=== PATIENT | female | born 1990 | race Caucasian/White ===

== ENCOUNTER 2016-06-15 18:37 | Emergency (ER) | payer OTHER ==
[~2016-06-15] VITALS: Ht 170.2 cm; Wt 127.0 kg
[~2016-06-15 18:37] MED LIST: ABILIFY 15MG15 MG PO; ACULAR5 ML OPH; ALBUTEROL0.09 MG/A1 INH; AMOXIL500 MG PO; AZITHROMYCIN250 M1 PO; BACTRIM DS 8001 TAB PO; BACTROBAN OINT.15 GM TOP; CLONIDINE HCL0.1 MG PO; DOXYCYCLINE HY100 M4 PO; ESCITALOPRAM10 MG PO; FIORICET 50-301 EACH PO; FLUOXETINE HCL20 M2 PO; GABAPENTIN300 M2 PO; IBUPROFEN800 MG PO; MEDROL DOSEPAK1 PAC PO; METHADONE HC10 MG/M1 PO; METHADONE10 MG/5 M2 PO; MUCINEX D ER T1 EACH PO; NARCAN4 MG NAS; NITROFURANTOIN100 M5 PO; PERCOCET 325 MG1 TA2 PO; PERCOCET 5-3251 EACH PO; SUBOXONE 8 MG-21 FIL SL; TESSALON PERLE100 MG PO; TOPIRAMATE25 M2 PO; VALTREX1 GM PO; VALTREX1000 MG PO; VICODIN 5-3001 EACH PO; VICODIN5-300 PO; VIGAMOX3 ML OPH; VIIBRYD20 MG PO; ZOFRAN ODT4 M1 SL
[2016-06-15] MEDS ORDERED: IBUPROFEN200 M3 PO (19:33)
--- NOTE | 2016-06-15 19:39 | ED GENERAL ADULT ---
History of Present Illness General Chief Complaint: Headache Stated Complaint: HEADACHE,PRESSURE BEHIND EYES Source: patient, family, old records Exam Limitations: no limitations Vital Signs & Intake/Output Vital Signs & Intake/Output Vital Signs Date Time Temp Pulse Resp B/P Pulse O2 O2 Flow FiO2 Ox Delivery Rate 06/15 2208 96.9 91 20 128/69 98 Room Air ED Intake and Output 06/16 0000 06/15 1200 Intake Total Output Total Balance Patient 280 lb Weight Allergies Coded Allergies: cefuroxime (Intermediate, RASH 06/15/16) lurasidone (VOMITING 06/15/16) Reconcile Medications Acetazolamide (Diamox Sequels) 500 MG CAPSULE.ER 1 CAP PO DAILY PSEUDOTUMOR CEREBRI Fluoxetine HCl 20 MG CAPSULE 1 CAP PO DAILY MENTAL HEALTH (Reported) Gabapentin 300 MG CAPSULE 1 CAP PO TID ANXIETY (Reported) Gabapentin (Neurontin) 300 MG CAPSULE 1 CAP PO TID Ibuprofen 200 MG CAPSULE 2 CAP PO PRN PAIN (Reported) Methadone HCl 10 MG/5 ML SOLUTION 80 MG PO DAILY MENTAL HEALTH (Reported) Naloxone HCl (Narcan) 4 MG SPRAY 4 MG REJI AD PRN OPIOID OVERUSE (Reported) Topiramate 25 MG TABLET 3 TAB PO BID ANXIETY (Reported) Triage Note: TRIAG: PT TO ER C/C HEADACHE AND PRESSURE BEHIND THE EYES. PT HAS NOTE FROM [facility] WHERE SHE GOES FOR HER METHADONE, NOTE IS DATED FROM 06/03/2016 IN WHICH THEY REFER HER TO THE ER FOR EVAL OF "PROGRESSIVELY WORSENING GERNERALIZED HEADACHE, R SIDED VISION CHANGES, UNSTEADINESS. HAS NOT HAD NEUROLOGIC WORKUP OR CARE. HAD NEW ONSET SEIZURE RECURRENT UNCLEAR ETIOLOGY." PT DID NOT SEEK ER INTERVENTION BETWEEN 06/03 AND TODAY. Triage Nurses Notes Reviewed? yes : No Patient currently breastfeeds: No HPI: Patient is a 25-year-old female presents complaining of headaches, blurred vision, seizure episodes. Patient reports she has a history of pseudotumor cerebri, was previously on Acetazolamide but stopped taking this medication due to it not being effective. Pain is mainly behind the right eye is currently moderate to severe. Mother also reports episodes were patient just "drops" and believes that she is having seizures. Episodes are more frequent when patient is not on her Neurontin. Patient normally takes Neurontin 300 mg 3 times a day but ran out several days ago. Mother reports patient feels confused after these episodes. Patient does not necessarily shake during these episodes, but mother reports that she has been watching her daughter shake in her sleep at times. Associated anxiety. Denies extremity numbness, extremity weakness, vomiting (DEANNA RODRIGUEZ) Past History Travel History Traveled to [place] past 21 day No Medical History Any Pertinent Medical History? see below for history Neurological: seizure, PSEUDOTUMOR CEREBRI TBI EENT: NONE Cardiovascular: NONE Respiratory: NONE Gastrointestinal: NONE Hepatic: NONE Renal: NONE Musculoskeletal: NONE Psychiatric: anxiety, depression Endocrine: NONE Blood Disorders: NONE Cancer(s): NONE YARD LABORER/Reproductive: NONE Tetanus Vaccine: 08/19/15 Surgical History Surgical History: cholecystectomy Psychosocial History Who do you live with Mother What is your primary language Croatian Tobacco Use: Current Daily Use Daily Tobacco Use Amount/Type: => 5 Cigarettes daily ETOH Use: occasional use Illicit Drug Use: PCP (DEANNA RODRIGUEZ) Family History Hx Contributory? No (ROLANDA FERNANDEZ,KIMBERLEY Escoto) Review of Systems Review of Systems Constitutional: Denies: chills, fever. EENTM: Reports: blurred vision, eye pain. Respiratory: Denies: cough, short of breath. Cardiovascular: Denies: chest pain. GI: Denies: abdominal pain, nausea, vomiting. Genitourinary: Reports: no symptoms. Musculoskeletal: Reports: no symptoms. Skin: Reports: no symptoms. Neurological/Psychological: Reports: see HPI, headache. Hematologic/Endocrine: Reports: no symptoms. Immunologic/Allergic: Reports: no symptoms. (DEANNA RODRIGUEZ) Physical Exam Physical Exam General Appearance: alert, awake, obese Head: atraumatic, normal appearance Eyes: Bilateral: normal appearance, PERRL, EOMI. Ears, Nose, Throat: normal pharynx, normal ENT inspection, hearing grossly normal Neck: normal inspection, supple, full range of motion Respiratory: normal breath sounds, chest non-tender, no respiratory distress, lungs clear Cardiovascular: regular rate/rhythm Gastrointestinal: soft, non-tender Back: normal inspection, normal range of motion Extremities: normal inspection, normal capillary refill, normal range of motion, no edema Neurologic/Psych: no motor/sensory deficits, awake, alert, oriented x 3, normal gait, normal mood/affect, java software developer II-XII nml as tested Skin: intact, normal color, warm/dry Lymphatic: no anterior cervical yanci (DEANNA RODRIGUEZ) Core Measures ACS in differential dx? No CVA/TIA Diagnosis: No Severe Sepsis Present: No Septic Shock Present: No (ROLANDA FERNANDEZ,KIMBERLEY Escoto) Progress Differential Diagnoses I considered the following diagnoses in my evaluation of the patient: pseudotumor cerebri, seizures, anxiety, migraines, substance abuse Diagnostic Imaging: Discussed w/RAD: CT Scan. Initial ED EKG: none Hand-Off Endorsed To: ROLANDA FERNANDEZ,KIMBERLEY Escoto Endorsed Time: 2110 Pending: labs (DEANNA RODRIGUEZ) Plan of Care: Orders Procedure Date/time Status CEREBROSPINAL FLUID CULTURE 06/15 2035 Active CSF TOTAL PROTEIN 06/15 2035 Complete CEREBROSPINAL FL CELL CT 06/15 2035 Complete CSF GLUCOSE 06/15 2035 Complete URINE 06/15 1932 Complete URINE DRUG SCREEN FOR ER ONLY 06/15 1932 Complete COMPREHENSIVE METABOLIC PANEL 06/15 1932 Complete CBC WITHOUT DIFFERENTIAL 06/15 1932 Complete Laboratory Tests 06/15/162034: CSF Glucose 62, CSF Total Protein 41 06/15/162034: CSF WBC 1, CSF RBC 11 H, CSF Comment 06/15/161952: Anion Gap 9, Estimated GFR > 60, BUN/Creatinine Ratio 15.0, Glucose 102 H, Calcium 9.0, Total Bilirubin 0.4, AST 20, ALT 34, Alkaline Phosphatase 60, Total Protein 7.4, Albumin 4.1, Globulin 3.3, Albumin/Globulin Ratio 1.2, CBC w Diff NO MAN DIFF REQ, RBC 4.95, MCV 81.2, MCH 27.0, RDW 15.5 H, MPV 7.8, Gran % 52.7 , Lymphocytes % 40.0, Monocytes % 5.5, Eosinophils % 1.5, Basophils % 0.3, Absolute Granulocytes 5.8, Absolute Lymphocytes 4.4 H, Absolute Monocytes 0.6, Absolute Eosinophils 0.2, Absolute Basophils 0, PUBS MCHC 33.2, Urine Opiates Screen < 100.00, Methadone Screen > 735 H, Barbiturate Screen < 60, Ur Phencyclidine Scrn > 72.00 H, Amphetamines Screen < 100, U Benzodiazepines Scrn < 85, Urine Cocaine Screen < 50, Urine Cannabis Screen < 5.00, Urine Test NEGATIVE Microbiology 01/15 2035 [facility] N [facility]: CSF Culture - RES 06/15 2034 [facility] N S: Gram Stain - RES 1950: Patient consented to LP 2030: Lumbar puncture performed by Dr. Mckeon and nm after informed consent was obtained. L3/L4 space localized. Area prepped with betadine and draped with sterile cloth. 1% lidocaine 7 ml injected to the area. Stylet advanced, clear fluid with opening pressure of 27 mm Hg with patient in the right decubital position. Well tolerated by patient. 2100: Discussed with Dr. Perrin: patient should be placed back on diamox sequels 500mg daily, even if she isnt feeling improved, it will help with the intracranial pressure. If patient will not take diamox, then can place on Lasix 20mg PO qd and should be seen in the [facility] or [facility]. (DEANNA RODRIGUEZ) Departure Departure Disposition: HOME OR SELF CARE Condition: Stable Clinical Impression Primary Impression: Pseudotumor cerebri Referrals: PATIENT HAS NO PRIMARY CARE DR (PCP/Family) Departure Forms: Customer Survey General Discharge Information Prescriptions: Current Visit Scripts Gabapentin (Neurontin) 1 CAP PO TID #30 CAP Acetazolamide (Diamox Sequels) 1 CAP PO DAILY #30 CAP (DEANNA RODRIGUEZ) Departure Additional Instructions: Follow-up with the neurology clinic at either [facility] or [facility]. Take medications as prescribed. Return if symptoms worsen or for any concerns. PA/BIOSTATISTICS MANAGER Co-Sign Statement Statement: ED Attending supervision documentation- [X] I saw and evaluated the patient. I have also reviewed all the pertinent lab results and diagnostic results. I agree with the findings and the plan of care as documented in the PA's/BIOSTATISTICS MANAGER's documentation. X[X] I have reviewed the ED Record and agree with the PA's/BIOSTATISTICS MANAGER's documentation. [] Additions or exceptions (if any) to the PAs/BIOSTATISTICS MANAGER's note and plan are summarized below: [] (ROLANDA FERNANDEZ,KIMBERLEY Escoto) Procedures Additional Procedures Additional Procedures: lumbar puncture (DEANNA RODRIGUEZ) Critical Care Note Critical Care Note Critical Care Time: non-applicable (KIMBERLEY MCKEON MD) Critical Care Note Critical Care Time: non-applicable (KIMBERLEY MCKEON MD)
[2016-06-15 20:04] LABS: ABSOLUTE BASOPHIL COUNT 0 /CUMM (0.0-0.2); ABSOLUTE EOSINOPHIL COUNT 0.2 /CUMM (0.0-0.7); ABSOLUTE GRANULOCYTE CT 5.8 /CUMM (1.4-6.5); ABSOLUTE MONOCYTE COUNT 0.6 /CUMM (0.10-0.60); BASOPHIL % 0.3 % (0.0-2.0); EOSINOPHIL % 1.5 % (0-5); GRANULOCYTE % 52.7 % (42.2-75.2); HEMATOCRIT 40.2 % (37-47); MEAN CORPUSCULAR HGB CONC 33.2 G/DL (33.0-37.0); MEAN CORPUSCULAR VOLUME 81.2 FL (81.0-99.0); MEAN PLATELET VOLUME 7.8 FL (7.4-10.4); PLATELET COUNT 282 /CUMM (130-400); RBC DISTRIBUTION WIDTH 15.5 % (11.5-14.5); RED BLOOD CELL CT 4.95 /CUMM (4.20-5.40)
[2016-06-15 20:05] LABS: ABSOLUTE LYMPH COUNT 4.4 /CUMM (1.2-3.4)
[2016-06-15] MEDS ORDERED: NEURONTIN300 M1 PO (21:00)
--- NOTE | 2016-06-15 21:07 | CT SCAN REPORT ---
EXAMINATION: CT HEAD WITHOUT CONTRAST CLINICAL INFORMATION: Seizures and pain behind her right eye. COMPARISON: Head CT 04/02/2016. TECHNIQUE: Contiguous axial imaging was performed from the skull base to vertex without intravenous administration of contrast. DLP: 744 mGy-cm. FINDINGS: There is no evidence of acute intracranial hemorrhage or territorial infarction. No abnormal mass effect or midline shift is seen. Tolentino to white matter differentiation is well preserved. No extra-axial fluid collections are identified. The ventricles are normal in size. There is no new abnormal attenuation within the brain parenchyma. An empty sella is not demonstrated. The osseous structures and soft tissues are unremarkable. The mastoid air cells and visualized portions of the paranasal sinuses are well aerated. IMPRESSION: No acute intracranial pathology.
[2016-06-15] MEDS ORDERED: DIAMOX SEQUELS500 MG PO (21:09)
[2016-06-15 22:08] VITALS: BP 128/69
== END 2016-06-15 22:09 ==
LOC: ERH 18:37
PROVIDERS: Physician Assistant
DX: G93.2 Benign intracranial hypertension (principal)
CPT/HCPCS: 87070; 87205; 80307; 81025; 96374

== ENCOUNTER 2017-12-26 21:32 | Emergency (ER) | payer OTHER ==
[~2017-12-26 21:32] MED LIST changes: +AZITHROMYCIN1 GM PO; +DIAMOX SEQUELS500 MG PO; +FLAGYL500 MG PO; +IBUPROFEN200 M3 PO; +KETOROLAC TROME10 M1 PO; +NEURONTIN300 M1 PO
--- NOTE | 2017-12-26 22:35 | ED ANKLE/FOOT INJURY COMPLAINT ---
History of Present Illness General Chief Complaint: Foot or Ankle Injury Stated Complaint: "I THINK I BROKE MY RT FOOT" PER PT Source: patient Exam Limitations: no limitations Vital Signs & Intake/Output Vital Signs & Intake/Output Vital Signs Date Time Temp Pulse Resp B/P B/P Pulse O2 O2 Flow FiO2 Mean Ox Delivery Rate 12/265 97.7 115 18 135/84 95 Room Air Allergies Coded Allergies: cefuroxime (Intermediate, RASH 06/15/16) lurasidone (VOMITING 06/15/16) Reconcile Medications Acetazolamide (Diamox Sequels) 500 MG CAPSULE.ER 1 CAP PO DAILY PSEUDOTUMOR CEREBRI Azithromycin 1 GRAM PACKET 1 PAC PO ONCE STD dissolve in 2 ounces of water Doxycycline Hyclate 100 MG TABLET 1 TAB PO BID STD Fluoxetine HCl 20 MG CAPSULE 1 CAP PO DAILY MENTAL HEALTH (Reported) Gabapentin 300 MG CAPSULE 1 CAP PO TID ANXIETY (Reported) Gabapentin (Neurontin) 300 MG CAPSULE 1 CAP PO TID Ibuprofen 200 MG CAPSULE 2 CAP PO PRN PAIN (Reported) Ketorolac Tromethamine 10 MG TABLET 1 TAB PO Q6P PRN PAIN Methadone HCl 10 MG/5 ML SOLUTION 80 MG PO DAILY MENTAL HEALTH (Reported) Metronidazole (Flagyl) 500 MG TABLET 4 TAB PO ONCE TRICH Naloxone HCl (Narcan) 4 MG SPRAY 4 MG REJI AD PRN OPIOID OVERUSE (Reported) Topiramate 25 MG TABLET 3 TAB PO BID ANXIETY (Reported) Triage Note: PT TO TRIAGE C/O R FOOT AND ANKLE PAIN S/P TRIPPING OVER DOG. PT FX THIS ANKLE IN THE PAST. +CSM. 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 ICE PACK APPLIED. AMBULATED INTO TRIAGE WITH SLOW BUT STEADY GAIT. Triage Nurses Notes Reviewed? yes Duration: constant Timing: single episode today Severity: severe Severity Numbers: 7 Method of Injury: fall No Modifying Factors: none : No Patient currently breastfeeds: No HPI: Patient is a 27-year-old female who presents emergency room stating that earlier this morning at 5 AM patient was ambulating tripped over dog twisted her right ankle foot resulting acute onset of pain and swelling. Denies any knee or hip pain. Skin some intact denies any head strike patient took Tylenol with minimal relief of symptoms states that ankle movements make worse Past History Travel History Traveled to [place] past 21 day No Medical History Any Pertinent Medical History? see below for history Neurological: seizure, PSEUDOTUMOR CEREBRI TBI EENT: NONE Cardiovascular: NONE Respiratory: NONE Gastrointestinal: NONE Hepatic: NONE Renal: NONE Musculoskeletal: NONE Psychiatric: anxiety, depression Endocrine: NONE Blood Disorders: NONE Cancer(s): NONE ADJUNCT INSTRUCTOR IN ECONOMICS/Reproductive: NONE Tetanus Vaccine: 08/19/15 Surgical History Surgical History: cholecystectomy Psychosocial History Who do you live with Mother What is your primary language Romansh Tobacco Use: Current Daily Use Daily Tobacco Use Amount/Type: => 5 Cigarettes daily ETOH Use: denies use Family History Hx Contributory? No Review of Systems Review of Systems Constitutional: Reports: no symptoms. EENTM: Reports: no symptoms. Respiratory: Reports: no symptoms. Cardiovascular: Reports: no symptoms. GI: Reports: no symptoms. Genitourinary: Reports: no symptoms. Musculoskeletal: Reports: see HPI, joint pain, joint swelling. Skin: Reports: no symptoms. Neurological/Psychological: Reports: no symptoms. Hematologic/Endocrine: Reports: no symptoms. Immunologic/Allergic: Reports: no symptoms. All Other Systems: Reviewed and Negative Physical Exam Physical Exam General Appearance: no apparent distress, alert, comfortable Head: atraumatic Eyes: Bilateral: normal appearance. Ears, Nose, Throat: hearing grossly normal Neck: normal inspection Cardiovascular/Respiratory: no respiratory distress Leg/Knee/Thigh Left: normal range of motion, normal inspection Ankle Right: pain, soft tissue tenderness, swelling, limited range of motion Foot Right: bone tenderness Neuro/Vascular: normal motor function, normal sensation Tendon: normal tendon function Psychiatric: awake, alert Skin: intact, normal color Progress Differential Diagnosis: arterial insufficiency, cellulitis, septic arthritis, gout, fracture, dislocation, sprain, contusion, compartmental syndrome Plan of Care: Orders Procedure Date/time Status Durable Medical Equipment 12/26 Active Patient was neurovascularly intact to right lower extremity x-ray showed no concerns of new acute fracture Jeffry wrap and ankle Aircast stirrup was placed PRE and postop neurovascular was intact discussed results with patient Diagnostic Imaging: Viewed by Me: Radiology Read. Radiology Impression: no fracture Comments: PATIENT: FARSHAD MESSINA PRESENT AGE: 27 PATIENT ACCOUNT NO: [id number] : 88 LOCATION: [facility] ORDERING PHYSICIAN: Reinier STEVENSON SERVICE DATE: 12/26/17 EXAM TYPE: RAD - XRY-FOOT COMPLETE, R; XRY-TWO VIEW RIGHT ANKLE EXAMINATION: RIGHT FOOT AND ANKLE 6 VIEWS CLINICAL INFORMATION: Pain and swelling after fall. COMPARISON: None. TECHNIQUE: AP, lateral, oblique views of the right foot were obtained in addition to AP, lateral and oblique views of the right ankle. FINDINGS: There are no fractures or dislocations. There is mild soft tissue swelling about the medial and lateral malleoli. No ankle joint effusion is identified. There is a tiny calcaneal spur at the Achilles insertion site. IMPRESSION: Mild soft tissue swelling without fracture or joint effusion. DICTATED BY: Remigio Morton MD DATE/TIME DICTATED:12/26/172256 SITE MANAGER:TOD DATE/TIME TRANSCRIBED:12/26/172256 CONFIDENTIAL, DO NOT COPY WITHOUT APPROPRIATE AUTHORIZATION. <Electronically signed in Other Vendor System> SIGNED BY: Remigio Morton MD 12/26/17 [id number] Departure Departure Disposition: HOME OR SELF CARE Condition: Stable Clinical Impression Primary Impression: Right ankle sprain Secondary Impressions: Sprain of foot, right Referrals: Candi FERNANDEZ,Estefani Ludwig (PCP/Family) Sky Galicia MD Additional Instructions: As discussed begin icing the area directly 20 minutes every 2 hours, begin to elevate THE foot for swelling begin [id number] ibuprofen for pain begin using the crutches until you can walk without pain begin using the Jeffry wrap and ankle Aircast stirrup for swelling and support. If no better in one week follow -up with orthopedic Dr. Galicia. If symptoms worsen return to emergency room Departure Forms: Customer Survey General Discharge Information
--- NOTE | 2017-12-26 23:03 | RADIOLOGY REPORT ---
EXAMINATION: RIGHT FOOT AND ANKLE 6 VIEWS CLINICAL INFORMATION: Pain and swelling after fall. COMPARISON: None. TECHNIQUE: AP, lateral, oblique views of the right foot were obtained in addition to AP, lateral and oblique views of the right ankle. FINDINGS: There are no fractures or dislocations. There is mild soft tissue swelling about the medial and lateral malleoli. No ankle joint effusion is identified. There is a tiny calcaneal spur at the Achilles insertion site. IMPRESSION: Mild soft tissue swelling without fracture or joint effusion.
[2017-12-26 23:23] VITALS: BP 134/81
== END 2017-12-26 23:24 ==
LOC: ERH 21:32
DX: S93.401A Sprain of unspecified ligament of right ankle, initial encounter (principal); S93.601A Unspecified sprain of right foot, initial encounter; W01.0XXA Fall on same level from slipping, tripping and stumbling without subsequent striking against object, initial encounter; Y93.01 Activity, walking, marching and hiking
CPT/HCPCS: 73600-RT; 73630-RT

== ENCOUNTER 2018-01-26 01:23 | Inpatient (IN) | payer OTHER ==
[~2018-01-26] VITALS: Ht 167.6 cm; Wt 133.4 kg
[2018-01-26] MEDS ORDERED: NEURONTIN800 M2 PO (09:12)
[2018-01-26] MEDS ORDERED: ABILIFY15 M1 PO (09:12)
[2018-01-26] MEDS ORDERED: SUBOXONE 12 MG1 EACH SL (09:15)
[2018-01-26] MEDS ORDERED: MELATONIN5 M7 PO (09:16)
[2018-01-26] MEDS ORDERED: WELLBUTRIN SR150 M1 PO (09:16)
[2018-01-26 10:26] LABS: ABSOLUTE BASOPHIL COUNT 0 /CUMM (0.0-0.2); ABSOLUTE EOSINOPHIL COUNT 0.2 /CUMM (0.0-0.7); ABSOLUTE GRANULOCYTE CT 7.3 /CUMM (1.4-6.5); ABSOLUTE LYMPH COUNT 2.6 /CUMM (1.2-3.4); ABSOLUTE MONOCYTE COUNT 0.7 /CUMM (0.10-0.60); BASOPHIL % 0.3 % (0.0-2.0); EOSINOPHIL % 1.6 % (0-5); GRANULOCYTE % 67.2 % (42.2-75.2); HEMATOCRIT 46.3 % (37-47); MEAN CORPUSCULAR HGB 26.6 PG (27.0-31.0); MEAN CORPUSCULAR HGB CONC 33.2 G/DL (33.0-37.0); MEAN PLATELET VOLUME 8.9 FL (7.4-10.4); PLATELET COUNT 249 /CUMM (130-400); RED BLOOD CELL CT 5.78 /CUMM (4.20-5.40); WHITE BLOOD CELL COUNT 10.8 /CUMM (4.8-10.8)
--- NOTE | 2018-01-26 12:37 | Operative Report ---
Operative/Inv Procedure Report Surgery Date: 01/26/18 Name of Procedure: Laparoscopic Sleeve Gastrectomy Pre-Operative Diagnosis: Morbid Obesity BMI 48, NAYE, Prediabetes, Depression Post-Operative Diagnosis: Same Estimated Blood Loss: less than 50ml Surgeon/Money Market Dealer: Ky Chen DO Anesthesia: general endotracheal tube IV Fluids: 1300 cc Drains: None Specimens: Stomach Complications: None Condition: Stable Operative Indication: This is a 27-year-old female who presented to the office for workup for bariatric surgery. After appropriate workup was completed I discussed with the patient the band, the sleeve, and the gastric bypass. The patient chose to undergo a sleeve gastrectomy. All risks including but not limited to bleeding, infection, leak, stricture, injury to surrounding bowel/esophagus/stomach/liver/ spleen, long-term reflux, DVT/PE, and mortality of 06/999 patients were discussed in detail. The patient understood everything and decided to proceed. Operative/Procedure Note Note: The patient was brought to the operating room and placed on the operating room table in supine position. Venodyne stockings were placed and adequate general endotracheal anesthesia was obtained. The patient was prepped and draped in standard surgical fashion. Began the procedure by making a 2 cm transverse incision supraumbilically and slightly to the left of the midline. Then using a 12 mm clear Visiport and a 10 mm 0 laparoscope, the abdominal cavity was accessed. Great care was taken to go through the anterior rectus sheath, the posterior rectus sheath, and through the peritoneum. Once we entered the peritoneum the abdominal cavity was insufflated to 15 mmHg. Upon initial examination no obvious gross pathology was seen. Accessory trocars were placed, 5 mm in the epigastrium for the Link liver retractor. The retractor was inserted and the liver was retracted anteriorly exposing the hiatus, no hiatal hernia was seen. 5 mm ports were placed in the right and left upper quadrant, a 5 mm left lateral port, and a 15 mm right lateral port. Began the procedure by mobilizing the greater curvature of the stomach approximately 7 cm from the pylorus. Once the retrogastric space was reached the whole greater curvature was mobilized maintaining hemostasis using Harmonic scalpel. Full hiatal dissection was performed, no hiatal hernia was seen. Posterior adhesions were taken down using Harmonic scalpel as well. Once the stomach was adequately mobilized a 38 Liberian bougie was inserted and placed along the lesser curvature of the stomach. Once the bougie was in the appropriate position we began creating our sleeve, two 60 mm black staple loads with seamguard followed by three 60 mm purple staple loads with seamguard as well. Great care was taken to leave ample room at the incisura angularis, to prevent any twisting or kinking of the sleeve, to stay lateral to the esophagogastric fat pad, and to do a full fundal excision. At the completion of the staple line the staple line was examined, it appeared intact and some bleeding was noted and controlled with endoclips. The bougie was removed, the sleeve was lying nicely without any twisting or kinking. The resected stomach was removed through the right lateral port site. The port and the left upper quadrant were irrigated until clear. All ports were removed under direct visualization no obvious bleeding was noted. The 15 mm port site fascia was closed using 0 Vicryl suture. The skin was closed using 4-0 Monocryl. Steri-Strips and dressings were placed. The patient was successfully extubated and transferred to the recovery room in stable condition. The patient tolerated the procedure well with no complications. Findings: No hiatal hernia, 38 Fr bougie CC: Candi FERNANDEZ,Estefani Ludwig
--- NOTE | 2018-01-26 14:15 | Admission Core Measures ---
Acute Coronary Syndrome (CM) ACS Core Measures Acute Coronary Syndrome Diagnosis No Congestive Heart Failure (NEW) CHF Core Measures Congestive Heart Failure Diagnosis No Cerebrovascular Accident CVA Core Measures CVA/TIA Diagnosis No Venous Thromboembolism VTE Core Kush (View Protocol) VTE Risk Factors Surgery No Mechanical VTE Prophylaxis d/t N/A MechProphylax Ordered No VTE Pharm Prophylaxis d/t NA PharmProphylax ordered Problem List As ranked by this Provider includes Assessment & Plan 1. NAYE (obstructive sleep apnea) 2. Morbid obesity with BMI of 45.0-49.9, adult 3. Prediabetes HOME MEDS Home Med List Acetazolamide (Diamox Sequels) 500 MG CAPSULE.ER 1 CAP PO DAILY PSEUDOTUMOR CEREBRI Aripiprazole (Abilify) 15 MG TABLET 1 TAB PO DAILY MOOD STABILIZER (Reported) Buprenorphine HCl/Naloxone HCl (Suboxone 12 MG-3 MG Sl Film) 12 MG-3 MG FILM 1 STR SL BID DRUG DEPENDENCE (Reported) Bupropion HCl (Wellbutrin Sr) 150 MG TABLET.ER 1 TAB PO D ANXIETY (Reported) Gabapentin (Neurontin) 800 MG TABLET 1 TAB PO BID ANXIETY (Reported) Melatonin 5 MG TABLET 1 TAB PO QPM SLEEP (Reported)
--- NOTE | 2018-01-26 14:18 | Surg Short-stay <48hrs Dis Sum ---
Visit Information Visit Dates Admission Date: 01/26/18 Discharge Date: 01/27/18 Surgical Short Stay DC Summary Admission Diagnosis: Morbid obesity, NAYE, prediabetes, depression Final Diagnosis: Same Procedure(s): Laparoscopic sleeve gastrectomy Summary/Significant Findings: Patient tolerated the procedure well. Postoperatively, she was tolerating a bariatric stage I diet, her pain was well controlled she was ambulating and voiding spontaneously. An upper gi study done on post-op day#1 was negative for leak and obstruction. She was cleared for discharge to home and given instructions to follow-up with Dr. Villegas in his office Condition at Discharge: Good Discharge Disposition: home or self care Discharge instructions provided to patient/family: Yes Post discharge follow-up plan: Patient is to follow-up with Dr. Villegas in 10 days. She was given instructions to call sooner with any questions or concerns Copies to: Candi FERNANDEZ,sEtefani Ludwig
[2018-01-26] MEDS ORDERED: LOVENOX40 MG/0.1 SC (15:10)
--- NOTE | 2018-01-26 15:13 | Patient Discharge Instructions ---
Discharge Instructions General Discharge Information You were seen/treated for: Morbid obesity You had these procedures: Laparoscopic sleeve gastrectomy Watch for these problems: Worsening abdominal pain, nausea, vomiting, fever, flulike illness, redness or drainage from the wounds, inability to take in adequate liquids by mouth Do not soak the wound: Yes No bath, but you may shower: Yes Other wound care: Change dressings in 3 days, you may apply Band-Aids, the Steri-Strips will fall off on their own Special Instructions: Take pain medication as needed Inject Lovenox into the subcutaneous tissue of the abdomen once daily for blood clot prevention Follow the bariatric protocol diet starting with stage I Diet Continue normal diet: No Recommended Diet: Bariatric (stage 1 diet) Activity Full Activity/No Limits: No Activity Self Limited: Yes Pounds, do NOT lift more than: 10 Acute Coronary Syndrome Inclusion Criteria At DC or during hospital stay patient has or had the following: ACS DIAGNOSIS No Discharge Core Measures Meds if any: Prescribed or Continued at Discharge Meds if any: NOT Prescribed or Continued at Discharge Congestive Heart Failure Inclusion Criteria At DC or during hospital stay patient has or had the following: CHF DIAGNOSIS No Discharge Core Measures Meds if any: Prescribed or Continued at Discharge Meds if any: NOT Prescribed or Continued at Discharge Cerebrovascular accident Inclusion Criteria At DC or during hospital stay patient has or had the following: CVA/TIA Diagnosis No Discharge Core Measures Meds if any: Prescribed or Continued at Discharge Meds if any: NOT Prescribed or Continued at Discharge Venous thromboembolism Inclusion Criteria VTE Diagnosis No VTE Type NONE VTE Confirmed by (Test) NONE Discharge Core Measures - Per Current guidelines, there needs to be overlap - treatment for the first 5 days of Warfarin therapy. - If discharged on Warfarin prior to 5 days of - overlap therapy, the patient will need to be - assessed for post discharge needs including - *Post discharge parental anticoagulation - *Warfarin and/or parental anticoagulation education - *Follow up date to check INR post discharge At least 5 days overlap therapy as Inpatient No Meds if any: Prescribed or Continued at Discharge Note: Overlap Therapy is Warfarin and Anticoagulant Meds if any: NOT Prescribed or Continued at Discharge
--- NOTE | 2018-01-26 15:23 | PN- Bariatrics ---
Subjective Subjective: Postop check: Patient resting comfortably in her bed, sleeping, she awakes to tell me that she has pain in the epigastrium that is severe. She has had 1.2 mg of morphine IV thus far since surgery. She is arousable however drifts off to sleep during examination. She also complains of nausea and vomited in the recovery room Objective Vital Signs and I&Os Intake & Output 01/26 1600 01/26 0800 01/26 0000 01/25 1600 01/25 0801/25 0000 Intake Total Output Total Balance Patient 302 lb Weight Vital signs stable, afebrile, heart rate 96, blood pressure 110/70 Physical Exam: Well-developed well-nourished no apparent distress. Sleepy but arousable HEENT: Atraumatic, extraocular motion intact Neck: Supple, no lymphadenopathy Heart: Regular rate and rhythm Respiratory: No respiratory distress, limited, clear to auscultation Abdomen: Mild distention. Tenderness in the epigastrium. Incision sites clean dry and intact. Positive bowel sounds. Extremities: No edema, no calf pain Neuro: Alert and oriented x3 Psych: Mood affect normal, normal memory normal judgment. Skin: Warm and dry, no rash on exposed skin Assessment/Plan Assessment/Plan Postop day #0 status post laparoscopic sleeve gastrectomy Perioperative antibiotics. Pain medication as needed. Continue Suboxone per usual outpatient dose Antiemetics as needed, consider Phenergan or Reglan Continue IV fluids Decadron if nausea continues Bariatric stage I diet N.p.o. after midnight for possible upper GI study in the morning out of bed Follow a.m. labs Heparin subcu for DVT prophylaxis 5000 units subcu 3 times daily, Lovenox as outpatient (prescription given in office) ALPS for DVT prophylaxis Regular home meds Core Measures Venous Thromboembolism VTE Risk Factors Surgery No Mechanical VTE Prophylaxis d/t N/A MechProphylax Ordered No VTE Pharm Prophylaxis d/t NA PharmProphylax ordered
[2018-01-26 22:39] VITALS: BP 156/95
[2018-01-27 02:37] VITALS: BP 125/55; BP 135/65
[2018-01-27 06:25] VITALS: BP 144/94
[2018-01-27 08:19] LABS: ABSOLUTE BASOPHIL COUNT 0 /CUMM (0.0-0.2); ABSOLUTE EOSINOPHIL COUNT 0 /CUMM (0.0-0.7); ABSOLUTE GRANULOCYTE CT 9.9 /CUMM (1.4-6.5); ABSOLUTE LYMPH COUNT 2.4 /CUMM (1.2-3.4); ABSOLUTE MONOCYTE COUNT 0.8 /CUMM (0.10-0.60); BASOPHIL % 0.2 % (0.0-2.0); EOSINOPHIL % 0.1 % (0-5); GRANULOCYTE % 75.3 % (42.2-75.2); HEMATOCRIT 44.2 % (37-47); MEAN CORPUSCULAR HGB 26.3 PG (27.0-31.0); MEAN CORPUSCULAR VOLUME 79.8 FL (81.0-99.0); MEAN PLATELET VOLUME 10.1 FL (7.4-10.4); PLATELET COUNT 266 /CUMM (130-400); RBC DISTRIBUTION WIDTH 17.2 % (11.5-14.5); RED BLOOD CELL CT 5.54 /CUMM (4.20-5.40); WHITE BLOOD CELL COUNT 13.2 /CUMM (4.8-10.8)
--- NOTE | 2018-01-27 08:58 | PN- Bariatrics ---
Subjective Subjective: Reports some epigastric discomfort. Currently npo, awaiting upper gi study. Improving nausea. Out of bed without difficulty. No dizziness. No shortness of breath. No chest pains. Voiding without difficulty. Objective Vital Signs and I&Os Vital Signs Date Time Temp Pulse Resp B/P B/P Pulse O2 O2 Flow FiO2 Mean Ox Delivery Rate 01/27 0625 97.8 98 18 144/94 96 01/27 0237 98.9 105 18 135/65 94 01/27 0200 94 Room Air 01/27 0000 94 Room Air 01/26 2239 98.6 103 18 156/95 90 Room Air 01/26 2200 94 Room Air 01/26 2000 94 Room Air Intake & Output 01/27 1600 01/27 0800 01/27 0000 01/26 1600 01/26 0801/26 0000 Intake Total 750 760 Output Total 250 550 Balance 500 210 Intake, IV 750 625 Intake, Oral 135 Output, Urine 250 550 Patient 294 lb 294 lb 302 lb Weight Weight Bed scale Measurement Method Physical Exam: General - alert & oriented x 3. sleepy. comfortable. Lungs - clear bilaterally. no w/r/r. Cardiac - s1s2. reg. Abdomen - soft. dressings c/d/i. no drains. expected coco-incisional tenderness. Extremities - warm bilaterally. no c/c/e. calves soft and nontender b/l. Current Medications: Current Medications Sig/Mera Start time Last Medication Dose Route Stop Time Status Admin Acetaminophen 1,000 MG Q6 01/26 1800 AC 01/27 N/A 1 UNIT IV 01/27 1214 0618 Acetaminophen 650 MG Q4P PRN 01/26 1300 AC PO Aripiprazole 15 MG DAILY 01/27 0900 AC 01/27 PO 0819 Buprenorphine/ 6 EACH BID 01/26 2100 AC 01/27 Naloxone SL 0820 Bupropion HCl 150 MG BID 01/26 2100 AC 01/27 PO 0819 Clindamycin 600 MG IQ8 01/26 1600 DC 01/26 Dextrose/Water 50 ML IV 01/27 0029 2308 Clindamycin 900 MG ONCE 01/26 0000 DC Dextrose/Water 50 ML IV 01/26 2359 Doxazosin Mesylate 2 MG DAILY 01/26 2200 AC 01/27 PO 0819 Fentanyl Citrate 0 .STK-MED ONE 01/26 1017 DC .ROUTE Gabapentin 800 MG BID 01/26 2100 AC 01/27 PO 0819 Heparin Sodium 5,000 UNIT Q8 01/26 1400 AC 01/27 (Porcine) SC 0618 Heparin Sodium 0 .STK-MED ONE 01/26 0931 DC (Porcine) .ROUTE Hydrocodone Bitart/ 15 ML Q6P PRN 01/27 2000 DC Acetaminophen PO Hydrocodone Bitart/ 30 ML Q6P PRN 01/27 2000 DC 01/26 Acetaminophen PO 2007 Hydromorphone HCl 1 MG Q4P PRN 01/26 IV 0618 Hydromorphone HCl 0 .STK-MED ONE 01/26 1736 DC .ROUTE Hydromorphone HCl 0 .STK-MED ONE 01/26 1625 DC .ROUTE Hydromorphone HCl 0 .STK-MED ONE 01/26 1337 DC .ROUTE Hydromorphone HCl 0 .STK-MED ONE 01/26 1311 DC .ROUTE Hydromorphone HCl 0 .STK-MED ONE 01/26 1252 DC .ROUTE Hydromorphone HCl 0 .STK-MED ONE 01/26 1018 DC .ROUTE Ketorolac 30 MG Q6 PRN 01/26 1300 AC Tromethamine IV Melatonin 5 MG AT BEDTIME PRN 01/26 1515 AC 01/26 PO 2307 Midazolam HCl 0 .STK-MED ONE 01/26 1017 DC .ROUTE Ondansetron HCl 4 MG Q6P PRN 01/26 IV 2006 Ondansetron HCl 0 .STK-MED ONE 01/26 1258 DC .ROUTE Oxycodone/ 1 TAB Q4-6 PRN PRN 01/27 09 UNVr Acetaminophen PO Oxycodone/ 2 TAB Q4-6 PRN PRN 01/27 0900 UNVr Acetaminophen PO Pantoprazole Sodium 40 MG DAILY 01/27 0901/27 IV 0819 Potassium Chloride 20 MEQ .Q8H 01/26 Dextrose/Sodium 1,000 ML IV 0323 Chloride Simethicone 40 MG Q6P PRN 01/26 PO 0619 Results Last 48 Hours of Labs: Laboratory Tests 01/27 01/26 0650 1015 Chemistry Sodium (137 - 145 mmol/L) Pending 139 Potassium (3.5 - 5.1 mmol/L) Pending 3.5 Chloride (98 - 107 mmol/L) Pending 105 Carbon Dioxide (22 - 30 mmol/L) Pending 26 Anion Gap (5 - 16) Pending 9 BUN (7 - 17 mg/dL) 9 Creatinine (0.5 - 1.0 mg/dL) 0.6 Estimated GFR (>60 ml/min) > 60 BUN/Creatinine Ratio (7 - 25 %) 15.0 Glucose (65 - 99 mg/dL) 98 Calcium (8.4 - 10.2 mg/dL) 9.2 Hematology CBC w Diff NO MAN DIFF REQ NO MAN DIFF REQ WBC (4.8 - 10.8 /CUMM) 13.2 H 10.8 RBC (4.20 - 5.40 /CUMM) 5.54 H 5.78 H Hgb (12.0 - 16.0 G/DL) 14.6 15.4 Hct (37 - 47 %) 44.2 46.3 MCV (81.0 - 99.0 FL) 79.8 L 80.0 L MCH (27.0 - 31.0 PG) 26.3 L 26.6 L MCHC (33.0 - 37.0 G/DL) 33.0 33.2 RDW (11.5 - 14.5 %) 17.2 H 17.0 H Plt Count (130 - 400 /CUMM) 266 249 MPV (7.4 - 10.4 FL) 10.1 8.9 Gran % (42.2 - 75.2 %) 75.3 H 67.2 Lymphocytes % (20.5 - 51.1 %) 18.1 L 24.1 Monocytes % (1.7 - 9.3 %) 6.3 6.8 Eosinophils % (0 - 5 %) 0.1 1.6 Basophils % (0.0 - 2.0 %) 0.2 0.3 Absolute Granulocytes (1.4 - 6.5 /CUMM) 9.9 H 7.3 H Absolute Lymphocytes (1.2 - 3.4 /CUMM) 2.4 2.6 Absolute Monocytes (0.10 - 0.60 /CUMM) 0.8 H 0.7 H Absolute Eosinophils (0.0 - 0.7 /CUMM) 0 0.2 Absolute Basophils (0.0 - 0.2 /CUMM) 0 0 08/28 0850 Urines Urine Test NEGATIVE Assessment/Plan Assessment/Plan This 27 year old female with history significant for morbid obesity (BMI 48), NAYE, prediabetes, depression, is POD#1 s/p laparoscopic sleeve gastrectomy currently npo / ivf awaiting upper gi study anti-emetics prn nausea protonix - gi ppx heparin sc - dvt ppx oob/ambulation encouraged f/u labs and ugi study percocet prn pain control home meds ordered d/c planning, today vs tomorrow depending on how she tolerates stage 1 bariatric diet will d/w / covering Core Measures Venous Thromboembolism VTE Risk Factors Surgery No Mechanical VTE Prophylaxis d/t N/A MechProphylax Ordered No VTE Pharm Prophylaxis d/t NA PharmProphylax ordered
--- NOTE | 2018-01-27 10:36 | RADIOLOGY REPORT ---
EXAMINATION: [place] UPPER GI SERIES CLINICAL INFORMATION: Status post laparoscopic sleeve gastrectomy. Prior cholecystectomy. COMPARISON: Abdomen CT from 01/17/2017. TECHNIQUE: A single contrast upper GI series with fluoroscopy and spot imaging was performed. The patient ingested Gastroview contrast material without difficulty and was evaluated in the upright and recumbent positions. FLUOROSCOPY TIME: 23 seconds NUMBER OF IMAGES: 6 images FINDINGS: After oral intake of 30 mL of Gastroview contrast material, there was prompt passage of contrast through the esophagus and into the stomach, which had the expected configuration after sleeve gastrectomy. No delay in passage of contrast into the normal duodenum. No evidence of a fixed filling defect, mucosal thickening or contrast leakage. IMPRESSION: Status post sleeve gastrectomy without complication; no contrast leakage or upper GI tract obstruction.
[2018-01-27] MEDS ORDERED: LOVENOX40 MG/0.1 SC (10:45)
[2018-01-27] MEDS ORDERED: PROTONIX40 M3 PO (10:45)
[2018-01-27] MEDS ORDERED: PERCOCET 5-3251 EACH PO (10:45)
[2018-01-27 14:50] VITALS: BP 142/80
== END 2018-01-27 15:04 | DRG 403 ==
LOC: SDA 01:23 → ENRESERV 17:45 → ENTRNSPT 18:54 → EDTRNSPT 19:15 → EDTRNSPTSTS 19:15 → 2NB 19:20 → CMPTRNSPT 19:24 → ENPENDDIS 01-27 14:13 → 2NB 01-27 15:04
PROVIDERS: Physician Assistant Surgical; Surgery
PROC: 0DB64Z3 Excision of Stomach, Percutaneous Endoscopic Approach, Vertical (ICD-10-PCS; principal; 2018-01-26)
PROC: 3E0T3BZ Introduction of Anesthetic Agent into Peripheral Nerves and Plexi, Percutaneous Approach (ICD-10-PCS; 2018-01-26)
DX: E66.01 Morbid (severe) obesity due to excess calories (principal); Z68.42 Body mass index [BMI] 45.0-49.9, adult; G47.33 Obstructive sleep apnea (adult) (pediatric); F32.9 Major depressive disorder, single episode, unspecified; R73.03 Prediabetes; Z90.49 Acquired absence of other specified parts of digestive tract; J45.909 Unspecified asthma, uncomplicated; Z88.8 Allergy status to other drugs, medicaments and biological substances
CPT/HCPCS: 2NBP; 36592; 74240; 81025; J0131; J1644; J1885; J2405; J3490; J7042; S5012